=== PATIENT | female | born 1965 | race Caucasian/White ===

== ENCOUNTER 2016-12-20 17:36 | Emergency (ER) | payer BC ==
[2016-12-20 17:46] VITALS: BP 150/83
--- NOTE | 2016-12-20 18:07 | ERNOTE ---
Lower Extremity HPI - Narrative Date of Service: 12/20/16 - General Lower Extremities Pain: thigh: left - hamstring spasms Time Seen by Provider: 12/20/16 17:48 Source: patient Exam Limitations: no limitations - Immun/Allergies/Home Medications Immunizations: IMMUNIZATION HX History of Influenza Vaccine No Hx Pneumococcal Vaccination No Allergies/Adverse Reactions: Allergies Allergy/AdvReac Type Severity Reaction Status Date / Time amoxicillin Allergy Verified 12/20/16 17:46 Home Medications: HOME MEDICATIONS Cyclobenzaprine HCl [Flexeril] 10 mg PO TID PRN #30 tab 12/20/16 [Last Taken Unknown] Ethynodiol D-Ethinyl Estradiol [Zovia 1-50E] 1 each PO DAILY 12/20/16 [Last Taken Unknown] - History of Present Illness Narrative: Patient states she was at school playing musical chairs when she felt something happen in the back of her leg. She states that it feels like she is having muscle spasms in the back of her left thigh. Date (Duration): 12/20/16 Occurred: just prior to arrival Location of Incident: school Method of Injury: Reports: sports injury Loss of Consciousness: Reports: no loss of consciousness Modifying Factors - (Improves): Reports: immobilization Modifying Factors - (Worsens): Reports: movement Associated Symptoms: Reports: weakness Other Injuries: Reports: none Subsequent Symptoms: Denies: sensory loss, numbness, motor loss, bowel/bladder problem Review of Systems - Review of Systems Constitutional: Present: no symptoms reported EYE: Present: no symptoms reported ENT: Present: no symptoms reported Respiratory: Present: no symptoms reported Cardiology: Present: no symptoms reported Gastrointestinal/Abdominal: Present: no symptoms reported Genitourinary: Present: no symptoms reported Musculoskeletal: Present: See HPI, muscle pain Skin: Present: no symptoms reported Neurological: Present: no symptoms reported Endocrine: Present: no symptoms reported Hematologic/Lymphatic: Present: no symptoms reported Psych: Present: no symptoms reported - Patient's Past Medical History Patient History - Medical: Other Patient History - Cardiac/Respiratory: Bronchitis Patient History - Cancer: No Hx of Cancer Patient History - Surgical Procedures: , T & A Patient History - Other: None - Social History Living Situations: home Psych History: No pertinent hx Alcohol Use: none Drug Use: none - Immunizations Hx Pneumococcal Vaccination: No History of Influenza Vaccine: No Physical Exam - Physical Exam Narrative: Able to elicit pain with a straight leg raise, and bent knee elevation General Appearance: Present: wd/wn, alert, no apparent distress Eye Exam: Normal inspection: bilateral Ears, Nose, Throat: Present: normal ENT inspection, normal pharynx Neck: Present: normal inspection, nontender Respiratory: Present: no respiratory distress, normal breath sounds, no accessory muscle use, lungs clear Cardiovascular/Chest: Present: regular rate, rhythm, no murmur, normal peripheral pulses Peripheral Pulses: N=norm/S=strong/W=weak/B=bound/A=absent: Radial (R): Normal, Radial (L): Normal, Dorsalis-pedis (R): Normal, Dorsalis-pedis (L): Normal Gastrointestinal/Abdominal: Present: normal bowel sounds, nontender, nondistended, soft Back Exam: Present: normal inspection, normal range of motion, no CVA tenderness , no vertebral tenderness Extremity Exam: Present: normal inspection, normal except -, no edema, decreased range of motion - left posterior thigh muscle spasm Skin Exam: Present: normal color, warm/dry Lymphatic Exam: Present: no adenopathy ED Progress - Vital Signs Patient's Vital Signs:: I have reviewed the patient's vital signs. Vital Signs: Vital Signs 12/20/16 17:40 Temperature 36.7 C Pulse Rate 98 Respiratory 12 Rate Blood Pressure 150/83 O2 Sat by Pulse 99 Oximetry - Progress/Reassessment Chief Complaint: Lower Extremity Pain/ Injury Progress:: Unchanged Departure Clinical Impression: Hamstring strain Qualifiers: Encounter type: initial encounter Laterality: left Qualified Code(s): S76.312A - Strain of muscle, fascia and tendon of the posterior muscle group at thigh level, left thigh, initial encounter - Departure Disposition: Home self-care Condition: Stable Instructions: Hamstring Strain, Hamstring Strain With [facility] for Routine Care of Injuries, [id number] Additional Instructions: Continuing previous home medications. Follow medications as directed. Continue to rest today. Return to emergency room if symptoms persist or become worse. Referrals: Dorie Handy ARNP [Primary Care Provider] - Prescriptions: Cyclobenzaprine HCl [Flexeril] 10 mg PO TID PRN #30 tab PRN Reason: MUSCLE SPASMS
== END 2016-12-20 18:10 | disposition home or self-care (01) ==
LOC: ER 17:36
DX: S76.312A Strain of muscle, fascia and tendon of the posterior muscle group at thigh level, left thigh, initial encounter (principal); Y93.6A Activity, physical games generally associated with school recess, summer camp and children; Y92.219 Unspecified school as the place of occurrence of the external cause